=== PATIENT | male | born 1980 | race African-American/Black ===

== ENCOUNTER 2019-03-11 11:06 | Emergency (ER) | payer OTHER ==
[~2019-03-11] VITALS: Ht 185.4 cm; Wt 70.3 kg
[2019-03-11 11:11] VITALS: BP 141/101
== END 2019-03-11 11:24 ==
LOC: ER 11:06
DX: R45.1 Restlessness and agitation (principal); F17.210 Nicotine dependence, cigarettes, uncomplicated